=== PATIENT | female | born 1975 | race Caucasian/White ===

== ENCOUNTER 2016-12-10 05:30 | Day surgery (SDC) | payer BC ==
[~2016-12-10] VITALS: Ht 160 cm; Wt 53.5 kg
[2016-12-10 06:11] VITALS: O2SAT 98
[2016-12-10] MEDS ORDERED: MIDAZOLAM HCL 5 MG/5 ML VIAL IVP ONE (07:05)
[2016-12-10] MEDS ORDERED: ONDANSETRON HCL 4 MG/2 ML VIAL IVP ONE (07:05)
[2016-12-10] MEDS ORDERED: NS 1000 ML BAG IV ONE (07:05)
[2016-12-10] MEDS ORDERED: PROPOFOL 200MG/ 20ML VIAL (DIPRIVAN) IV ONE (07:05)
[2016-12-10] MEDS ORDERED: BUPIVACAINE /EPINEPHRINE/PF 0.5% 30 ML VIAL INJ ONE ×2 (07:05)
[2016-12-10] MEDS ORDERED: LR 1,000 ML IV.SOLN IV ONE (07:05)
[2016-12-10] MEDS ORDERED: KETOROLAC TROMETHAMINE 30 MG VIAL IVP ONE (07:05)
[2016-12-10] MEDS ORDERED: fentaNYL CITRATE/PF 100 MCG/2 ML AMP IVP ONE (07:05)
[2016-12-10] MEDS ORDERED: SEVOFLURANE 15 MIN GAS INH ONE (07:05)
[2016-12-10] MEDS ORDERED: CEFAZOLIN 1 GM IVPB PREMIX 50 ML IV ONE (07:05)
[2016-12-10] MEDS ORDERED: ROCURONIUM BROMIDE 10 MG/ML (ZEMURON) IV ONE (07:05)
[2016-12-10] MEDS ORDERED: fentaNYL CITRATE 250 MCG/5 ML AMP IV ONE (07:05)
[2016-12-10] MEDS ORDERED: NS IRRIG SOLN 1000 ML IR ONE (07:05)
[2016-12-10] MEDS ORDERED: LR 1,000 ML IV SCH (08:33)
[2016-12-10] MEDS ORDERED: MORPHINE 4 MG/ML INJ. SYRINGE IVP PRN ×3 (08:45)
[2016-12-10] MEDS ORDERED: METOCLOPRAMIDE HCL 10 MG/2 ML VIAL IVP PRN (08:45)
[2016-12-10] MEDS ORDERED: ONDANSETRON HCL 4 MG/2 ML VIAL IVP PRN (09:15)
[2016-12-10] MEDS ORDERED: PROMETHAZINE HCL 25 MG/ML AMP IM PRN (09:15)
[2016-12-10] MEDS ORDERED: OXYCODONE/ACETAMINOPHEN 5-325 TABLET PO PRN (09:15)
[2016-12-10] MEDS ORDERED: HYDROmorphone 2 MG TAB PO PRN (09:15)
[2016-12-10] MEDS ORDERED: MORPHINE 4 MG/ML INJ. SYRINGE ONE (09:38)
[2016-12-10] MEDS ORDERED: HYDROmorphone 2 MG/ML VIAL IVP ONE (09:45)
[2016-12-10] MEDS ORDERED: METOCLOPRAMIDE HCL 10 MG/2 ML VIAL ONE (09:51)
[2016-12-10] MEDS ORDERED: HYDROmorphone 2 MG/ML VIAL ONE (09:52)
[2016-12-10 10:41] VITALS: BP 101/66; PULSE 16; RESP 16
== END 2016-12-10 14:25 | disposition home or self-care (01) ==
LOC: SMU 05:30 → SDS 05:30
PROVIDERS: ATTEND Obstetrics & Gynecology
DX: D25.0 Submucous leiomyoma of uterus (principal); D25.1 Intramural leiomyoma of uterus; D25.2 Subserosal leiomyoma of uterus; N83.8 Other noninflammatory disorders of ovary, fallopian tube and broad ligament; Z98.890 Other specified postprocedural states; Z88.8 Allergy status to other drugs, medicaments and biological substances
CPT/HCPCS: 36415; 57000; 58571; 86886; 86900; 86901; 88307; C1727; J0690; J1170; J1885; J2250; J2270; J2405; J2704; J2765; J3010 ×2; J3490; J7030; J7120; E0190